=== PATIENT | male | born 1960 | race Caucasian/White ===

== ENCOUNTER 2020-01-02 07:23 | Inpatient (IN) | payer MEDICAID ==
[~2020-01-02] VITALS: Ht 177.8 cm; Wt 105.7 kg
--- NOTE | 2020-01-02 07:46 | NUR ---
PT TO ROOM FROM TRIAGE VIA WHEELCHAIR.
--- NOTE | 2020-01-02 07:51 | NUR ---
PT BROUGHT BACK FROM TRIAGE WITH CHIEF COMPLAINT OF -"I HAVE A PULMONARY EMBOLIS" DIAG 1 MO AGO ON ELIQUIS NEW ONSET CP AND SOB STARTED APPROX 30MIN AGO. MID STERNAL CP, PAIN INCREASES WITH INSPIRATION. PATIENT IS ALERT, ORIENTED, WARM AND DRY. ABLE TO SPEAK COMPLETE SENTANCES.
--- NOTE | 2020-01-02 08:17 | NUR ---
PT TO IMAGING
[2020-01-02 08:35] LABS: MEAN CORPUSCULAR HEMOGLOBIN 31.1 pg (27.5-34.5); MEAN CORPUSCULAR HGB CONC 32.8 g/dL (33.2-36.2); MEAN CORPUSCULAR VOLUME 94.9 fL (81-97); MEAN PLATELET VOLUME 7.5 fL (7.4-10.4); PLATELET COUNT 397 x10^3/uL (130-400); RED BLOOD COUNT 4.24 x10^6/uL (4.38-5.82); RED CELL DISTRIBUTION WIDTH 15.6 % (9.4-14.8)
[2020-01-02 08:37] LABS: INTERNATIONAL NORMALIZED RATIO 1.17 (0.93-1.1); PROTHROMBIN TIME 12.4 Seconds (9.6-11.5)
[2020-01-02 08:39] LABS: ALANINE AMINOTRANSFERASE 156 U/L (12-78); ALBUMIN 3.6 g/dL (3.4-5.0); ANION GAP 6 mmol/L (5-15); CHLORIDE 102 mmol/L (98-107)
[2020-01-02 08:43] LABS: ALKALINE PHOSPHATASE 100 U/L (45-117); BILIRUBIN,TOTAL 0.7 mg/dL (0.2-1.0); TOTAL PROTEIN 7.1 g/dL (6.4-8.2); TROPONIN I 0.069 ng/mL (0.000-0.045)
[2020-01-02] MEDS ORDERED: ACETAMINOPHEN 325 MG TABLET ONE (08:46)
--- NOTE | 2020-01-02 08:49 | NUR ---
PT RESTING IN BED.
[2020-01-02 08:57] LABS: BASOPHILS # (AUTO) 0.05 x10^3/uL (0-0.1); BASOPHILS % (AUTO) 0 % (0-1); EOSINOPHILS # (AUTO) 0.09 x10^3/uL (0-0.4); EOSINOPHILS % (AUTO) 1 % (1-7); LYMPHOCYTES # (AUTO) 3.11 x10^3/uL (1-3.4); LYMPHOCYTES % (AUTO) 21 % (22-44); MD SCAN; MONOCYTES # (AUTO) 1.56 x10^3/uL (0.2-0.8); MONOCYTES % (AUTO) 10 % (2-9); NEUTROPHILS # (AUTO) 10.28 x10^3/uL (1.8-6.8); NEUTROPHILS % (AUTO) 68 % (42-75)
[2020-01-02] MEDS ORDERED: CEFTRIAXONE PMX 1GM/50ML 50 ML IV ONE (09:00)
[2020-01-02] MEDS ORDERED: ACETAMINOPHEN 325 MG TABLET PO ONE (09:00)
[2020-01-02] MEDS ORDERED: AZITHROMYCIN 500 MG in SODIUM CHLORIDE 0.9% 250 ML IV ONE (09:00)
[2020-01-02] MEDS ORDERED: LORazepam 0.5MG TABLET PO ONE (09:30)
[2020-01-02] MEDS ORDERED: SODIUM CHLORIDE FLUSH 10ML SYR IVF PRN (09:30)
[2020-01-02] MEDS ORDERED: CEFTRIAXONE PMX 1GM/50ML 50 ML ONE (09:32)
[2020-01-02] MEDS ORDERED: LORazepam 0.5MG TABLET ONE (09:32)
[2020-01-02] MEDS ORDERED: ASPIRIN 325 MG TABLET EC PO ONE (10:30)
[2020-01-02] MEDS ORDERED: NITROGLYCERIN 0.4 MG/SPRAY SL PRN (10:30)
[2020-01-02] MEDS ORDERED: ACETAMINOPHEN 325 MG TABLET PO PRN (10:30)
[2020-01-02] MEDS ORDERED: NITROGLYCERIN 0.4 MG BOTTLE (25 TABS) SL PRN (10:30)
[2020-01-02] MEDS ORDERED: LORazepam 2 MG/ML, 1ML ONE (10:54)
[2020-01-02] MEDS ORDERED: LORazepam 2 MG/ML, 1ML IVPush PRN (11:00)
[2020-01-02] MEDS ORDERED: ASPIRIN 325 MG TABLET EC ONE (12:08)
[2020-01-02] MEDS ORDERED: FUROSEMIDE 20 MG TABLET PO ONE (12:24)
[2020-01-02 13:03] LABS: MICROSCOPIC NOT IND
[2020-01-02 13:07] LABS: CULTURE INDICATED? NO
[2020-01-02 13:18] LABS: AMPHETAMINE SCREEN, URINE Positive (Negative); BARBITURATE SCREEN, URINE Negative (Negative); BENZODIAZEPINE SCREEN, URINE Negative (Negative); CANNABINOID SCREEN, URINE Negative (Negative); COCAINE SCREEN, URINE Negative (Negative); METHADONE SCREEN, URINE Negative (Negative); OPIATE SCREEN, URINE Negative (Negative)
[2020-01-02] MEDS ORDERED: FUROSEMIDE 20 MG TABLET ONE (13:48)
[2020-01-02] MEDS ORDERED: ALBUTEROL/IPRATROPIUM 2.5MG/0.5MG, 3 ML NPPB PRN (14:00)
[2020-01-02 14:38] VITALS: BP 107/61
[2020-01-02] MEDS ORDERED: ALBUTEROL/IPRATROPIUM 2.5MG/0.5MG, 3 ML NPPB SCH (15:00)
[2020-01-02] MEDS ORDERED: LORA-446 PO (16:15)
[2020-01-02] MEDS ORDERED: ALLO300T PO (16:21)
[2020-01-02] MEDS ORDERED: LISI2.5T PO (16:21)
[2020-01-02] MEDS ORDERED: APIX5TAB PO (16:21)
[2020-01-02] MEDS ORDERED: MOME13HF2 INH (16:21)
[2020-01-02] MEDS ORDERED: ALBU2.5V NEB (16:21)
[2020-01-02] MEDS ORDERED: METO-93 PO (16:21)
[2020-01-02] MEDS ORDERED: LEVO50TA5 PO (16:21)
[2020-01-02] MEDS ORDERED: POTA20TA14 PO (16:21)
[2020-01-02] MEDS ORDERED: ALBU90AE2 INH (16:21)
[2020-01-02] MEDS ORDERED: ATOR20TA37 PO (16:21)
[2020-01-02] MEDS ORDERED: TRIA5PAS10 TP (16:21)
[2020-01-02] MEDS ORDERED: ROPI0.254 PO (16:21)
[2020-01-02] MEDS ORDERED: FURO-92 PO (16:21)
[2020-01-02] MEDS: FUROSEMIDE 20 MG TABLET PO SCH (17:27)
[2020-01-02 19:49] VITALS: BP 116/75
[2020-01-02] MEDS: ROPINIROLE 0.25MG TABLET PO SCH (21:27)
[2020-01-02] MEDS: APIXABAN 5 MG TABLET PO SCH (21:27)
[2020-01-02] MEDS: SODIUM CHLORIDE FLUSH 10ML SYR IVF SCH (21:28)
[2020-01-02] MEDS: ATORVASTATIN 20 MG TABLET PO SCH (21:28)
[2020-01-03 02:07] VITALS: BP 99/61
[2020-01-03] MEDS: ASPIRIN 325 MG TABLET EC PO SCH (05:17)
[2020-01-03] MEDS: LEVOTHYROXINE 50 MCG TABLET PO SCH (05:17)
[2020-01-03 05:45] LABS: ANION GAP 5 mmol/L (5-15); CALCIUM 8.9 mg/dL (8.5-10.1); CHLORIDE 102 mmol/L (98-107)
[2020-01-03 05:49] LABS: CHOL/HDL RATIO 3.2; CHOLESTEROL, TOTAL 98 mg/dL (140-239); CREATININE 0.95 mg/dL (0.7-1.3); HDL CHOL % 32 % (26-37); HDL CHOLESTEROL (DIRECT) 31 mg/dL (40-60); LDL CHOLESTEROL,CALCULATED 48 mg/dL (54-169); LDL/HDL RATIO 1.5 (0.5-3.0); TRIGLYCERIDES 97 mg/dL (50-200); VLDL CHOLESTEROL 19 mg/dL (0-25)
[2020-01-03 07:05] VITALS: BP 138/90
[2020-01-03] MEDS: FUROSEMIDE 20 MG TABLET PO SCH ×2 (08:45→17:36)
[2020-01-03] MEDS: ALLOPURINOL 300 MG TABLET PO SCH (08:45)
[2020-01-03] MEDS: POTASSIUM CHLORIDE 20 MEQ TAB.ER.PRT PO SCH (08:46)
[2020-01-03] MEDS: APIXABAN 5 MG TABLET PO SCH ×2 (08:46→20:41)
[2020-01-03] MEDS: LISINOPRIL 5 MG TABLET PO SCH (08:47)
[2020-01-03] MEDS: SODIUM CHLORIDE FLUSH 10ML SYR IVF SCH ×2 (08:47→20:42)
[2020-01-03 13:35] VITALS: BP 112/69
[2020-01-03] MEDS: AZITHROMYCIN 250 MG TABLET PO SCH (15:09)
[2020-01-03 19:58] VITALS: BP 122/77
[2020-01-03] MEDS ORDERED: MELATONIN 5 MG TABLET PO PRN (20:30)
[2020-01-03] MEDS: ROPINIROLE 0.25MG TABLET PO SCH (20:41)
[2020-01-03] MEDS: ATORVASTATIN 20 MG TABLET PO SCH (20:41)
[2020-01-04 02:46] VITALS: BP 121/76
[2020-01-04 05:31] LABS: MEAN CORPUSCULAR HEMOGLOBIN 31.1 pg (27.5-34.5); MEAN CORPUSCULAR HGB CONC 32.5 g/dL (33.2-36.2); MEAN CORPUSCULAR VOLUME 95.7 fL (81-97); MEAN PLATELET VOLUME 7.4 fL (7.4-10.4); PLATELET COUNT 391 x10^3/uL (130-400); RED BLOOD COUNT 4.27 x10^6/uL (4.38-5.82); RED CELL DISTRIBUTION WIDTH 15.3 % (9.4-14.8)
[2020-01-04 06:17] LABS: BASOPHILS # (AUTO) 0.15 x10^3/uL (0-0.1); BASOPHILS % (AUTO) 1 % (0-1); EOSINOPHILS # (AUTO) 0.26 x10^3/uL (0-0.4); EOSINOPHILS % (AUTO) 2 % (1-7); LYMPHOCYTES % (AUTO) 25 % (22-44); MD SCAN; MONOCYTES # (AUTO) 1.81 x10^3/uL (0.2-0.8); MONOCYTES % (AUTO) 12 % (2-9); NEUTROPHILS # (AUTO) 9.44 x10^3/uL (1.8-6.8); NEUTROPHILS % (AUTO) 61 % (42-75)
[2020-01-04] MEDS: ASPIRIN 325 MG TABLET EC PO SCH (06:43)
[2020-01-04] MEDS: LEVOTHYROXINE 50 MCG TABLET PO SCH (06:43)
[2020-01-04 07:50] VITALS: BP 110/69
[2020-01-04] MEDS: AZITHROMYCIN 250 MG TABLET PO SCH (09:44)
[2020-01-04] MEDS: POTASSIUM CHLORIDE 20 MEQ TAB.ER.PRT PO SCH (09:44)
[2020-01-04] MEDS: ALLOPURINOL 300 MG TABLET PO SCH (09:45)
[2020-01-04] MEDS: APIXABAN 5 MG TABLET PO SCH ×2 (09:45→21:09)
[2020-01-04] MEDS: LISINOPRIL 5 MG TABLET PO SCH (09:45)
[2020-01-04] MEDS: FUROSEMIDE 20 MG TABLET PO SCH ×2 (09:45→18:27)
[2020-01-04] MEDS: SODIUM CHLORIDE FLUSH 10ML SYR IVF SCH ×2 (09:45→21:09)
[2020-01-04] MEDS: hydrOXyzine 50MG TABLET PO PRN ×2 (11:53→18:27)
[2020-01-04 14:01] VITALS: BP 110/67
[2020-01-04 20:01] VITALS: BP 94/57
[2020-01-04] MEDS: ATORVASTATIN 20 MG TABLET PO SCH (21:08)
[2020-01-04] MEDS: ROPINIROLE 0.25MG TABLET PO SCH (21:09)
[2020-01-05] MEDS: hydrOXyzine 50MG TABLET PO PRN ×2 (03:00→11:35)
[2020-01-05 03:57] VITALS: BP 114/71
[2020-01-05] MEDS: ASPIRIN 325 MG TABLET EC PO SCH (06:12)
[2020-01-05] MEDS: LEVOTHYROXINE 50 MCG TABLET PO SCH (06:12)
[2020-01-05 08:05] VITALS: BP 122/82
[2020-01-05] MEDS ORDERED: REGADENOSON 0.4 MG/5 ML SYRINGE ONE (08:09)
[2020-01-05] MEDS: ALLOPURINOL 300 MG TABLET PO SCH (08:25)
[2020-01-05] MEDS: AZITHROMYCIN 250 MG TABLET PO SCH (08:25)
[2020-01-05] MEDS: LISINOPRIL 5 MG TABLET PO SCH (08:26)
[2020-01-05] MEDS: FUROSEMIDE 20 MG TABLET PO SCH ×2 (08:26→17:00)
[2020-01-05] MEDS: SODIUM CHLORIDE FLUSH 10ML SYR IVF SCH (08:26)
[2020-01-05] MEDS: APIXABAN 5 MG TABLET PO SCH (08:26)
[2020-01-05] MEDS: POTASSIUM CHLORIDE 20 MEQ TAB.ER.PRT PO SCH (08:26)
[2020-01-05] MEDS ORDERED: NITR0.4T28 SL (15:00)
[2020-01-05 15:55] VITALS: BP 128/74
== END 2020-01-05 18:52 | disposition home or self-care (01) | DRG 291 ==
LOC: ED 09:32 → INTOOBSV 09:33 → EDIP 09:33 → 5SO 15:07 → OBSVTOIN 01-03 16:16
PROVIDERS: ADMIT Emergency Medicine; ATTEND Emergency Medicine
DX: I11.0 Hypertensive heart disease with heart failure (principal); I26.94 Multiple subsegmental thrombotic pulmonary emboli without acute cor pulmonale; D68.69 Other thrombophilia; F13.20 Sedative, hypnotic or anxiolytic dependence, uncomplicated; J44.1 Chronic obstructive pulmonary disease with (acute) exacerbation; R65.10 Systemic inflammatory response syndrome (SIRS) of non-infectious origin without acute organ dysfunction; I24.9 Acute ischemic heart disease, unspecified; I50.23 Acute on chronic systolic (congestive) heart failure; F15.10 Other stimulant abuse, uncomplicated; F41.9 Anxiety disorder, unspecified; I45.10 Unspecified right bundle-branch block; M10.9 Gout, unspecified; E78.5 Hyperlipidemia, unspecified; I48.91 Unspecified atrial fibrillation; E03.9 Hypothyroidism, unspecified; Z79.01 Long term (current) use of anticoagulants; Z82.49 Family history of ischemic heart disease and other diseases of the circulatory system; Z86.711 Personal history of pulmonary embolism; Z87.891 Personal history of nicotine dependence; Z88.8 Allergy status to other drugs, medicaments and biological substances
CPT/HCPCS: 36415; 71046; 78452; 80048; 80053; 80061; 80307; 81003; 83605; 83880; 84145; 84484; 85025; 85610; 87040; 93005; 93017; 96374; 96375; 99285; G0378; J0456; J0696; J2785; A9502; J2060; J7050; J7512; Q0177